=== PATIENT | male | born 1970 | race Caucasian/White ===

== ENCOUNTER → 2016-06-13 | Outpatient (CLI) | payer BC | END | disposition home or self-care (01) | LOC: GMAH 10:06 | PROVIDERS: ATTEND Family Medicine | DX: M10.9 Gout, unspecified (principal) ==

== ENCOUNTER → 2017-06-07 | Outpatient (CLI) | payer BC | LOC: GMAH 10:10 | PROVIDERS: ATTEND Family Medicine | DX: M10.9 Gout, unspecified (principal) ==

== ENCOUNTER → 2018-06-11 | Outpatient (CLI) | payer BC | LOC: GMAH 11:58 | PROVIDERS: ATTEND Family Medicine | DX: M10.9 Gout, unspecified (principal) ==

== ENCOUNTER → 2020-03-17 | Outpatient (CLI) | payer BC | LOC: GMA MATASK 14:07 | PROVIDERS: ATTEND Family Medicine | DX: Z00.00 Encounter for general adult medical examination without abnormal findings (principal); Z12.5 Encounter for screening for malignant neoplasm of prostate; R53.83 Other fatigue ==

== ENCOUNTER → 2020-05-12 | Outpatient (CLI) | payer BC ==
--- NOTE | 2020-05-13 12:25 | US ---
EXAM DESCRIPTION: Extremity,Lower Inocencio Arteries: Ultrasound. CLINICAL HISTORY: LEG PAIN COMPARISON: None. TECHNIQUE: Doppler evaluation of the bilateral lower extremity arterial flow waveforms and velocities. FINDINGS: Arterial waveforms in the right lower extremity are multiphasic from the right common femoral artery through the right posterior tibial artery. Decreased waveform and velocity in the right dorsalis pedis artery. Arterial waveforms in the left lower extremity are multiphasic from the left common femoral artery through the left dorsalis pedis artery.. Comments: Velocity in the right dorsalis pedis artery significantly lower than the contralateral left vessel and the right posterior tibial artery. IMPRESSION: Doppler ultrasound of the bilateral lower extremity arterial system shows evidence of distal significant atherosclerotic occlusive disease in the right dorsalis pedis artery or right anterior tibial artery. No evidence of significant atherosclerotic occlusive disease in the left lower extremity arterial system. Electronically signed by: Daniel Ross MD 05/13/2020 12:24 PM [facility]
== END ==
LOC: US 12:48
PROVIDERS: ATTEND Family Medicine
DX: M79.81 Nontraumatic hematoma of soft tissue (principal); I70.201 Unspecified atherosclerosis of native arteries of extremities, right leg